=== PATIENT | female | born 1975 | race American Indian/Alaskan Native ===

== ENCOUNTER 2019-12-12 07:44 | Emergency (ER) | payer SELFPAY ==
[2019-12-12 07:58] VITALS: BP 147/96
--- NOTE | 2019-12-12 11:33 | Emergency Department Report ---
ED General Adult HPI - General Chief complaint: Extremity Problem,Nontraumatic Stated complaint: RT LEG PAINS Time Seen by Provider: 12/12/19 10:20 Source: patient Mode of arrival: Ambulatory Limitations: No Limitations - History of Present Illness Initial comments: 44-year-old -Luxembourger female patient presents with complaints of right foot and left leg pain and swelling x3 days. Patient reports her current pain is about a 7/10 in severity and describes it as sharp and aching. She reports she stands on her feet a great deal for 2 jobs and that the pain is worse with standing. She states pain also worsens first thing in the morning when getting out of bed and stepping down. She denies any numbness/tingling/weakness in her limb difficulty moving her limbs, or injury. She does report history of DVT and states she is not currently on blood thinners. She denies any recent long travel/surgeries, cough/hemoptysis/shortness of breath, chest pain, history of cancer, or hormone use. Patient is currently following with her PCP and hematology. - Related Data Previous Rx's Medication Instructions Recorded Last Taken Type Naproxen 500 mg PO BID #20 tablet 08/18/19 Unknown Rx cephALEXin [Keflex] 500 mg PO Q6HR #40 capsule 08/18/19 Unknown Rx Diclofenac Sodium 50 mg PO TID PRN #21 tablet. 12/12/19 Unknown Rx Diclofenac Sodium [Solaraze 3%] 1 applicatio TP QID PRN #1 12/12/19 Unknown Rx gel..gram. Allergies Allergy/AdvReac Type Severity Reaction Status Date / Time No Known Allergies Allergy Unverified 08/18/19 09:22 ED Review of Systems ROS: Stated complaint: RT LEG PAINS Other details as noted in HPI Constitutional: denies: chills, diaphoresis, fever, malaise, weakness Respiratory: denies: cough, shortness of breath Cardiovascular: denies: chest pain, syncope Gastrointestinal: denies: abdominal pain, nausea, vomiting Musculoskeletal: joint swelling, arthralgia Skin: denies: change in color ED Past Medical Hx - Past Medical History Previous Medical History?: Yes Additional medical history: Anemia - Surgical History Past Surgical History?: Yes Additional Surgical History: Tubal ligation 2014 - Social History Smoking Status: Never Smoker Substance Use Type: None - Medications Home Medications: Home Medications Medication Instructions Recorded Confirmed Last Taken Type Naproxen 500 mg PO BID #20 tablet 08/18/19 Unknown Rx cephALEXin [Keflex] 500 mg PO Q6HR #40 capsule 08/18/19 Unknown Rx Diclofenac Sodium 50 mg PO TID PRN #21 tablet. 12/12/19 Unknown Rx Diclofenac Sodium [Solaraze 3%] 1 applicatio TP QID PRN #1 12/12/19 Unknown Rx gel..gram. ED Physical Exam - General Limitations: No Limitations General appearance: alert, in no apparent distress - Head Head exam: Present: atraumatic, normocephalic - Eye Eye exam: Present: normal appearance. Absent: scleral icterus - ENT ENT exam: Present: mucous membranes moist - Respiratory Respiratory exam: Present: normal lung sounds bilaterally. Absent: respiratory distress - Cardiovascular Cardiovascular Exam: Present: regular rate - Extremities Exam Extremities exam: Present: full ROM - Expanded Lower Extremity Exam Right Lower Leg exam: Present: full ROM, tenderness. Absent: swelling, ecchymosis, deformity, erythema Ankle exam: Present: full ROM. Absent: tenderness Foot/Toe exam: Present: full ROM, calcaneal tenderness. Absent: swelling, ec chymosis, deformity, dislocation, erythema Neuro vascular tendon exam: Absent: pulse deficit, motor deficit, sensory deficit ED Course Vital Signs 12/12/19 07:54 Temperature 98.4 F Pulse Rate 85 Respiratory 18 Rate Blood Pressure 147/96 O2 Sat by Pulse 98 Oximetry ED Medical Decision Making - Radiology Data Radiology results: report reviewed DUPLEX DOPPLER LOWER EXTREMITY VEINS, RIGHT INDICATION / CLINICAL INFORMATION: pain and swelling. TECHNIQUE: Duplex doppler imaging was performed through the veins of the right lower extremity using venous compression and other maneuvers. COMPARISON: None available. FINDINGS: RIGHT COMMON FEMORAL VEIN: Negative. RIGHT FEMORAL VEIN: Negative. RIGHT POPLITEAL VEIN: Negative. RIGHT CALF VEINS: Negative. ADDITIONAL FINDINGS: None. IMPRESSION: 1. No sonographic evidence for DVT in the right lower extremity. - Medical Decision Making 44-year-old -[place]ux[place] female patient presents with complaints of right foot and left leg pain and swelling x3 days. Patient reports her current pain is about a 7/10 in severity and describes it as sharp and aching. She reports she stands on her feet a great deal for 2 jobs and that the pain is worse with standing. She states pain also worsens first thing in the morning when getting out of bed and stepping down. She denies any numbness/tingling/weakness in her limb difficulty moving her limbs, or injury. She does report history of DVT and states she is not currently on blood thinners. She denies any recent long travel/surgeries, cough/hemoptysis/shortness of breath, chest pain, history of cancer, or hormone use. Patient is currently following with her PCP and hematology. On exam, she has tenderness to palpation of the posterior right lower leg and at the plantar portion of the heel and medial foot. Doppler ultrasound is negative for DVT. Given history, suspect is are due to plantar fasciitis. Discussed need for icing, night splinting, and follow-up with PCP or podiatry. She is w ell-appearing, vitals are normal, she is stable for discharge home. Strict return precautions were discussed in detail with patient who verbalizes understanding. Critical care attestation.: If time is entered above; I have spent that time in minutes in the direct care of this critically ill patient, excluding procedure time. ED Disposition Clinical Impression: Plantar fasciitis of right foot Disposition: DC-01 TO HOME OR SELFCARE Is pt being admited?: No Condition: Stable Instructions: Plantar Fasciitis (ED) Prescriptions: Diclofenac Sodium 50 mg PO TID PRN #21 tablet. PRN Reason: pain Diclofenac Sodium [Solaraze 3%] 1 applicatio TP QID PRN #1 gel..gram. PRN Reason: pain Referrals: PRIMARY CARE, [Primary Care Provider] - 3-5 Days [id number] DPM [Staff Physician] - 3-5 Days Forms: Work/School Release Form(ED)
--- NOTE | 2019-12-12 11:41 | Vascular Lab Report ---
DUPLEX DOPPLER LOWER EXTREMITY VEINS, RIGHT INDICATION / CLINICAL INFORMATION: pain and swelling. TECHNIQUE: Duplex doppler imaging was performed through the veins of the right lower extremity using venous comp ression and other maneuvers. COMPARISON: None available. FINDINGS: RIGHT COMMON FEMORAL VEIN: Negative. RIGHT FEMORAL VEIN: Negative. RIGHT POPLITEAL VEIN: Negative. RIGHT CALF VEINS: Negative. ADDITIONAL FINDINGS: None. IMPRESSION: 1. No sonographic evidence for DVT in the right lower extremity. Signer Name: Johan MAHAN Signed: 12/12/2019 11:36 AM Workstation Name: [id number]
== END 2019-12-12 12:18 | disposition home or self-care (01) ==
LOC: ED 07:44
DX: M72.2 Plantar fascial fibromatosis (principal)
CPT/HCPCS: 99283